=== PATIENT | male | born 1990 | race Caucasian/White ===

== ENCOUNTER 2017-08-03 17:12 | Emergency (ER) | payer OTHER, BC ==
[2017-08-03 17:10] VITALS: O2SAT 100
[2017-08-03] MEDS ORDERED: DIPHTH/TETANUS/ACEL PERTUSSIS (BOOSTER) 0.5 ML VIAL/PFS IM ONE (17:19)
[2017-08-03 17:27] VITALS: O2SAT 100
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
[2017-08-03 17:38] LABS: AUTOMATED NEUTROPHIL # 6.8 TH/MM3 (1.8-7.7); BASOPHIL % 0.3 % (0.0-2.0); EOSINOPHIL % 0.2 % (0.0-4.0); HEMATOCRIT 40.1 % (39.0-51.0); HEMOGLOBIN 14.5 GM/DL (13.0-17.0); LYMPHOCYTE # 2.3 TH/MM3 (1.0-4.8); MEAN CELL VOLUME 81.5 FL (80.0-100.0); MEAN CORPUSCULAR HEMOGLOBIN 29.5 PG (27.0-34.0); MEAN PLATELET VOLUME 8.4 FL (7.0-11.0); MONO % 8.4 % (0.0-8.0); MONOCYTE # 0.8 TH/MM3 (0-0.9); NEUT % 68.1 % (16.0-70.0); PLATELET COUNT 161 TH/MM3 (150-450); RED BLOOD COUNT 4.92 MIL/MM3 (4.50-5.90); RED CELL DISTRIBUTION WIDTH 13.6 % (11.6-17.2)
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
[2017-08-03 17:44] LABS: MEAN CORPUSCULAR HGB CONC 36.2 % (32.0-36.0)
[2017-08-03 17:49] LABS: INTERNATIONAL NORMALIZED RATIO 1.2 RATIO; PROTHROMBIN TIME - PATIENT 11.8 SEC (9.8-11.6)
[2017-08-03] MEDS ORDERED: HYDR-3516 PO ×2 (18:25→19:04)
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
[2017-08-03] MEDS ORDERED: KETOROLAC TROMETHAMINE 30 MG/ML (IVP) VIAL IV PUSH ONE (18:30)
[2017-08-03 18:31] VITALS: BP 131/89; PULSE 102; RESP 18; O2SAT 98
== END 2017-08-03 22:32 | disposition home or self-care (01) ==
LOC: EDBD 17:12 → NEPI 17:12 → NEPE 22:32
DX: S42.002A Fracture of unspecified part of left clavicle, initial encounter for closed fracture (principal); R41.3 Other amnesia; M54.9 Dorsalgia, unspecified; V29.9XXA Motorcycle rider (driver) (passenger) injured in unspecified traffic accident, initial encounter; Z23 Encounter for immunization
CPT/HCPCS: 70450; 71010; 72170; 82435; 82565; 82947; 84132; 84295; 84520; 85025; 85610; 85730; 86850; 86900; 86901; 90715; 96374; 99285; J1885